=== PATIENT | female | born 1965 | race African-American/Black ===

== ENCOUNTER 2016-08-31 01:21 | Emergency (ER) | payer BC ==
[~2016-08-31] VITALS: Ht 160 cm; Wt 72.0 kg
[~2016-08-31 01:21] MED LIST: ADVIL,NUPRIN,M200 MG PO; LIDODERM 5% P1 PATCH TD; MOTRIN600 MG PO; NORCO 7.5/321 TABLET PO; VALIUM2 MG PO
[2016-08-31 02:25] LABS: ADD MIUA? NO; BILIRUBIN NEGATIVE; BLOOD NEGATIVE; COLOR YELLOW ((YELLOW)); GLUCOSE (STRIP) NEGATIVE; KETONES NEGATIVE; LEUKOCYTES NEGATIVE; NITRITE NEGATIVE; PH, URINE 6.5 (5-8); PROTEIN (STRIP) NEGATIVE; SPECIFIC GRAVITY 1.014 (1.000-1.030); UCUL ADDED? NO; UROBILINOGEN 0.2 MG/DL (0.2-1.0)
[2016-08-31 02:44] LABS: HEMATOCRIT 40.3 % (36.0-46.0); MCH 29.1 PG (29.0-34.0); MCV 85.6 FL (83-99); MEAN PLAT.VOLUME 9.4 uM^3 (9.5-12.4); PLATELET COUNT 270 K/uL (156-360); RBC DIS.WIDTH-CV 14.9 % (11.8-14.6); RBC DIS.WIDTH-SD 46.1 % (39-53); RED BLOOD COUNT 4.71 M/uL (3.80-5.20); WHITE BLOOD COUNT 4.5 K/uL (4.1-10.2)
[2016-08-31 02:53] LABS: CHLORIDE 107 mEq/L (99-109); SODIUM 141 mEq/L (136-147)
[2016-08-31 02:55] LABS: GLUCOSE 96 mg/dL (70-99)
[2016-08-31 02:56] LABS: ANION GAP 12 MEQ/L (2-14)
[2016-08-31 02:57] LABS: TOTAL BILIRUBIN 0.4 mg/dL (0.0-1.0)
[2016-08-31 02:59] LABS: ALKALINE PHOSPHATASE 89 IU/L (3-129); GFR ESTIMATE (CALCULATED) > 59 mL/min/
[2016-08-31 03:00] LABS: UREA NITROGEN (BUN) 13 mg/dL (9-23)
[2016-08-31 03:02] LABS: LIPASE 33 U/L (1.0-51.0)
[2016-08-31 03:08] LABS: QUANTITATIVE HCG < 4.0 MIU/ML
[2016-08-31 04:04] VITALS: BP 107/71
== END 2016-08-31 04:05 | disposition home or self-care (01) ==
LOC: EME 01:21
PROVIDERS: Emergency Medicine
DX: R10.31 Right lower quadrant pain (principal)
CPT/HCPCS: 74177; 80053; 81003; 83690; 84702; 85027; 93005; 99281; 99284; J1885; J2405; J7030